=== PATIENT | male | born 1985 | race African-American/Black ===

== ENCOUNTER 2019-05-24 17:00 | Inpatient (IN) | payer SELFPAY ==
[~2019-05-24] VITALS: Ht 175.3 cm; Wt 66.9 kg
[2019-05-24] MEDS ORDERED: SODIUM CHLORIDE 0.9% 1,000 ML IVB ONE (21:24)
[2019-05-24] MEDS ORDERED: PROMETHAZINE HCL 25 MG/ML 1ML IV PRN (21:30)
[2019-05-24] MEDS ORDERED: PANTOPRAZOLE 40 MG/10 ML VIAL INJ IV ONE (21:30)
[2019-05-24 22:16] LABS: Basophils # (auto) 0 uL; Eosinophils # (auto) 0 uL; Lymphocytes # (auto) 0.7 uL; Monocytes # (auto) 0.8 uL; Platelet Count (auto) 275 10^3/uL (140-450); Red Cell Distribution Width 17.2 % (11.8-14.3); White Blood Cell 13.6 10^3/uL (4.4-10.8)
[2019-05-24 22:18] LABS: Basophils % (auto) 0.2 % (0.0-2.0); Hematocrit 41.6 % (41.0-53.0); Hemoglobin 13.6 g/dL (13.5-17.5); Lymphocytes % (auto) 4.8 % (10.0-50.0); Mean Corpuscular Hemoglobin 36.6 pg (28.0-32.0); Mean Corpuscular Hgb Conc. 32.7 g/dL (32.0-36.0); Mean Corpuscular Volume 111.9 fL (80.0-100.0); Monocytes % (auto) 6.2 % (0.0-12.0); Neutrophils # (auto) 12.1 uL; Neutrophils % (auto) 88.8 % (37.0-80.0); Red Blood Cells 3.71 10^6/uL (4.5-5.90)
[2019-05-24 22:33] LABS: Albumin 4.3 g/dL (3.4-5.0); Anion Gap 28 (5-15); Blood Urea Nitrogen 19 mg/dL (7-18); Calcium 8.4 mg/dL (8.5-10.1); Carbon Dioxide 10 mmol/L (21-32); Chloride 95 mmol/L (98-107); Glucose 108 mg/dL (74-106); Lipase 53 U/L (73-393); Magnesium 2.1 mg/dL (1.6-2.6); Potassium 4.7 mmol/L (3.5-5.1); Sodium 133 mmol/L (136-145)
[2019-05-24 22:39] LABS: Alanine Aminotransferase 98 U/L (16-61); Alkaline Phosphatase 160 U/L (45-117); Amylase 31 U/L (25-115); Aspartate Aminotransferase 205 U/L (15-37); BUN/Creatinine Ratio 16.1; Blood Alcohol < 3.0 mg/dL (0-5); GFR African American 90 mL/min; GFR Non-African American 75 mL/min; Total Protein 8.8 g/dL (6.4-8.2)
[2019-05-24 23:00] LABS: Urine Bacteria NONE SEEN /hpf (None Seen); Urine Blood TRACE /uL (Negative); Urine Specific Gravity 1.017 (1.001-1.035); Urine WBC <1 /hpf (0 - 3)
[2019-05-24 23:13] LABS: Alcohol, Urine < 3.0 mg/dL (0-5); Amphetamine Screen, Urine NEGATIVE (NEGATIVE); Barbiturate Scree,Urine NEGATIVE (NEGATIVE); Benzodiazephine Screen, Urine NEGATIVE (NEGATIVE); Cannabinoid Screen, Urine POSITIVE (NEGATIVE); Cocaine Screen, Urine POSITIVE (NEGATIVE); Phencyclidine Screen, Urine NEGATIVE (NEGATIVE)
[2019-05-24] MEDS ORDERED: cefTRIAXone 1GM/50ML D5W 50 ML IV ONE (23:15)
[2019-05-24] MEDS ORDERED: metroNIDAZOLE 500MG/100ML 100 ML IV ONE (23:15)
[2019-05-24 23:21] LABS: Opiate Scree,Urine NEGATIVE (NEGATIVE)
[2019-05-25] MEDS ORDERED: ACETAMINOPHEN 325 MG TAB PO PRN (01:45)
[2019-05-25] MEDS ORDERED: ONDANSETRON HCL 4 MG/2 ML VIAL IV PRN (01:45)
[2019-05-25] MEDS ORDERED: MORPHINE SULFATE 4 MG/ML SYR/VIAL IV PRN (01:45)
[2019-05-25] MEDS ORDERED: TEMAZEPAM 15 MG CAP PO PRN (01:45)
[2019-05-25] MEDS ORDERED: DOCUSATE SOD 100 MG CAP PO PRN (01:45)
[2019-05-25] MEDS ORDERED: HYDROcodone-ACET 5/325MG TAB PO PRN (01:45)
[2019-05-25] MEDS ORDERED: MORPHINE SULF INJ 2 MG/ML SYRINGE 1ML IV PRN (01:45)
[2019-05-25] MEDS ORDERED: NITROGLYCERIN 0.4 MG SL TAB SL PRN (01:45)
[2019-05-25 06:57] LABS: Basophils # (auto) 0 uL; Eosinophils # (auto) 0 uL; Lymphocytes # (auto) 1.3 uL; Monocytes # (auto) 1.1 uL; Monocytes % (auto) 9.9 % (0.0-12.0); Red Cell Distribution Width 16.7 % (11.8-14.3)
[2019-05-25 06:59] LABS: Basophils % (auto) 0.3 % (0.0-2.0); Hematocrit 36.3 % (41.0-53.0); Hemoglobin 12.2 g/dL (13.5-17.5); Lymphocytes % (auto) 11.8 % (10.0-50.0); Mean Corpuscular Hemoglobin 36.8 pg (28.0-32.0); Mean Corpuscular Hgb Conc. 33.5 g/dL (32.0-36.0); Mean Corpuscular Volume 109.9 fL (80.0-100.0); Neutrophils # (auto) 8.9 uL; Platelet Count (auto) 221 10^3/uL (140-450); Red Blood Cells 3.31 10^6/uL (4.5-5.90); White Blood Cell 11.4 10^3/uL (4.4-10.8)
[2019-05-25 07:13] LABS: BUN/Creatinine Ratio 17.2; Calcium 7.8 mg/dL (8.5-10.1); Potassium 5.3 mmol/L (3.5-5.1)
--- NOTE | 2019-05-25 07:15 | NUR ---
Opening Shift Note Report and assumed care of patient, asleep, No S/S of distress/SOB or pain. Bed is low position , locked, with 2x side rails up. Call light is within reach. will continue to monitor for changes Q1hr and PRN.
[2019-05-25] MEDS: metroNIDAZOLE 500MG/100ML 100 ML IV SCH ×3 (08:45→20:10)
[2019-05-25 09:00] VITALS: BP 133/74
[2019-05-25] MEDS ORDERED: LEVOFLOXACIN 500MG 100 ML IV ONE (11:30)
--- NOTE | 2019-05-25 11:40 | NUR ---
MD VISIT DR.H HUFF HERE TO SEE AND EXAMINED PATIENT,RECEIVED ORDERS.
[2019-05-25] MEDS ORDERED: SODIUM CHLORIDE 0.9% 1,000 ML IV SCH (12:00)
[2019-05-25 13:00] VITALS: BP 127/74
[2019-05-25] MEDS ORDERED: GOLYTELY 4L KIT PO ONE (14:30)
[2019-05-25 17:00] VITALS: BP 131/76
--- NOTE | 2019-05-25 17:53 | NUR ---
PATIENT INSTRUCTED, PLAN OF CARE AND EXPECTED PROCEDURE, EXPLAIN INDICATION,IMPORTANCE OF TAKING GOLYTELY AND WHAT TO EXPECT WHEN DRINKING IT LIKE LOOSE OR WATERY STOOL,PATIENT VERBALIZED UNDERSTANDING.
--- NOTE | 2019-05-25 19:23 | NUR ---
STATUS UNCHANGED NO DISTRESS NO DISCOMFORT,REPORT GIVEN TO INCOMING NOC SHIFT RN
[2019-05-25] MEDS: PANTOPRAZOLE 40 MG TAB PO SCH (20:30)
[2019-05-25 22:00] VITALS: BP 129/81
[2019-05-26] MEDS: metroNIDAZOLE 500MG/100ML 100 ML IV SCH ×2 (02:54→07:39)
[2019-05-26 05:08] VITALS: BP 128/81
[2019-05-26 05:14] LABS: Basophils # (auto) 0 uL; Eosinophils # (auto) 0 uL; Hemoglobin 11.8 g/dL (13.5-17.5); Lymphocytes # (auto) 1.1 uL; Nucleated Red Blood Cells % 0.4 %; White Blood Cell 4.5 10^3/uL (4.4-10.8)
[2019-05-26 05:21] LABS: Basophils % (auto) 0.5 % (0.0-2.0); Hematocrit 34.4 % (41.0-53.0); Lymphocytes % (auto) 24.1 % (10.0-50.0); Mean Corpuscular Hemoglobin 36.8 pg (28.0-32.0); Mean Corpuscular Hgb Conc. 34.3 g/dL (32.0-36.0); Mean Corpuscular Volume 107.3 fL (80.0-100.0); Monocytes # (auto) 0.5 uL; Neutrophils # (auto) 2.9 uL; Neutrophils % (auto) 64.4 % (37.0-80.0); Platelet Count (auto) 202 10^3/uL (140-450); Red Cell Distribution Width 16.5 % (11.8-14.3)
[2019-05-26 05:27] LABS: INR 1.01 (0.9-1.15); Partial Thromboplastin Time 25.3 sec (23.64-32.05)
[2019-05-26 05:28] LABS: Calcium 8.2 mg/dL (8.5-10.1); Potassium 3.5 mmol/L (3.5-5.1)
[2019-05-26 05:30] LABS: BUN/Creatinine Ratio 10.2
[2019-05-26] MEDS ORDERED: GOLYTELY 4L KIT PO ONE (06:00)
--- NOTE | 2019-05-26 07:30 | NUR ---
Opening Note Assumed pt care from [facility] nurse. Pt is a/ox4 with no s/s of distress or SOB. Pt is currently sitting upright in bed with no complaints at this time. Pt is currently NPO since 0000. Pt has almost completed all of bowel prep. Discussed POC with pt and pening EGD and colonoscopy; pt verbalized understanding. Safety measures maintained with call light within reach, bed in lowest position and side rails up. Will continue to monitor for changes q1hr and prn.
[2019-05-26] MEDS ORDERED: SODIUM CHLORIDE LOCK 10 ML ONE (08:28)
[2019-05-26] MEDS ORDERED: LIDOCAINE VISCOUS 2% 15ML UD ONE (08:28)
[2019-05-26] MEDS ORDERED: diphenhdrAMINE HCL 50 MG/1 ML VL ONE (08:28)
[2019-05-26 08:47] LABS: Hepatitis B Surface Antibody Negative
[2019-05-26 08:51] VITALS: BP 131/73
--- NOTE | 2019-05-26 09:01 | NUR ---
pT Addendum: 05/26/19 at 0902 by MARISSA BRAR RN RN Pt Taken Down to Pre-OP Pt is a/ox4 with no s/s of distress or SOB upon transfer. All questions were answered.
[2019-05-26] MEDS: fentaNYL CITRATE 100 MCG/2 ML VL ONE ×2 (09:10→09:13)
[2019-05-26] MEDS: MIDAZOLAM HCL 5 MG/ML-1ML VIAL ONE ×3 (09:10→09:17)
[2019-05-26 09:18] LABS: Hepatitis A Total Antibody Positive
[2019-05-26] MEDS ORDERED: fentaNYL CITRATE 100 MCG/2 ML VL ONE (09:18)
[2019-05-26] MEDS ORDERED: MIDAZOLAM HCL 5 MG/ML-1ML VIAL ONE (09:18)
[2019-05-26 09:50] LABS: Hepatitis B Core Total AB Negative; Hepatitis B Surface Antigen Negative (Negative); Hepatitis C Antibody Negative (Negative)
[2019-05-26] MEDS: PANTOPRAZOLE 40 MG TAB PO SCH (10:00)
[2019-05-26] MEDS ORDERED: LEVOFLOXACIN 500MG 100 ML IV SCH (10:00)
--- NOTE | 2019-05-26 10:06 | NUR ---
Pt Back on Unit Pt back on unit from OR. Pt is a/ox4 with no s/s of distress or SOB. Pt placed on 2 L NC. Safety measures maintained with call light within reach, bed in lowest position and side rails up. Will continue to monitor for changes q1hr and prn.
--- NOTE | 2019-05-26 10:18 | NUR ---
Dr Walker at Bedside MD to see pt. MD plans to send pt home today. Follow up with GI and primary as out pt. Will implement and follow through.
[2019-05-26 11:29] VITALS: BP 131/73
--- NOTE | 2019-05-26 12:04 | NUR ---
IV D/C IV to pt's L AC d/c'ed. Catheter was removed fully intact. Pressure was applied to site for 3 minutes with gauze and then wrapped in coban. Pt instructed to keep dressing on for 30 minutes; pt verbalized understanding. Site is asymptomatic upon d/c.
[2019-05-26 13:00] VITALS: BP 136/82
--- NOTE | 2019-05-26 13:10 | NUR ---
Pt D/C'ed Off Unit Pt ambulated off unit. Pt took all belongings, all education material and all prescriptions. Pt is aware of follow up appointments. Pt is a/ox4 with no s/s of distress upon d/c. IV was removed prior to d/c. All questions were answered.
== END 2019-05-26 13:10 | disposition home or self-care (01) | DRG 392 ==
LOC: EDBD 17:00 → ER 17:06 → OVERFLOW 17:07 → WEST WING 05-25 02:22
PROVIDERS: ADMIT Hospitalist; ATTEND Family Medicine
PROC: 0DB78ZX Excision of Stomach, Pylorus, Via Natural or Artificial Opening Endoscopic, Diagnostic (ICD-10-PCS; principal; 2019-05-26 09:08)
PROC: 0DBN8ZX Excision of Sigmoid Colon, Via Natural or Artificial Opening Endoscopic, Diagnostic (ICD-10-PCS; 2019-05-26 09:08)
DX: K29.20 Alcoholic gastritis without bleeding (principal); F10.288 Alcohol dependence with other alcohol-induced disorder; K52.9 Noninfective gastroenteritis and colitis, unspecified; F10.20 Alcohol dependence, uncomplicated; K29.00 Acute gastritis without bleeding; K63.5 Polyp of colon; R79.89 Other specified abnormal findings of blood chemistry; F17.210 Nicotine dependence, cigarettes, uncomplicated; K44.9 Diaphragmatic hernia without obstruction or gangrene; K20.9 Esophagitis, unspecified; K29.80 Duodenitis without bleeding; Z82.49 Family history of ischemic heart disease and other diseases of the circulatory system; Z71.6 Tobacco abuse counseling
CPT/HCPCS: 36415; 43239; 45384; 71045; 74176; 76705; 80048; 80053; 80307; 80320; 81001; 82150; 83690; 83735; 85025; 85610; 85730; 86704; 86706; 86708; 86803; 86850; 86900; 86901; 87340; 96361; 96365; 96367; 96375; C9113; G0378; J0696; J1956; J2250; J3490

== ENCOUNTER 2019-08-12 08:31 | Emergency (ER) | payer SELFPAY ==
[2019-08-12 08:33] VITALS: BP 120/89
[2019-08-12] MEDS ORDERED: KETOROLAC TROMETH 60MG/2ML VIAL IM ONE (08:45)
== END 2019-08-12 09:36 | disposition home or self-care (01) ==
LOC: EDBD 08:31 → ER 08:31
DX: S76.912A Strain of unspecified muscles, fascia and tendons at thigh level, left thigh, initial encounter (principal); S50.12XA Contusion of left forearm, initial encounter; F17.210 Nicotine dependence, cigarettes, uncomplicated; F12.10 Cannabis abuse, uncomplicated; W01.0XXA Fall on same level from slipping, tripping and stumbling without subsequent striking against object, initial encounter; Y93.01 Activity, walking, marching and hiking; Y92.89 Other specified places as the place of occurrence of the external cause; Y99.8 Other external cause status
CPT/HCPCS: 73090; 73552; 96372; 99284; J1885

== ENCOUNTER 2020-02-01 10:26 | Emergency (ER) | payer MEDICAID ==
[~2020-02-01] VITALS: Ht 180.3 cm; Wt 72.6 kg
[2020-02-01 10:31] VITALS: BP 119/81
== END 2020-02-01 12:20 | disposition home or self-care (01) ==
LOC: ER 10:26
DX: M25.461 Effusion, right knee (principal); F17.210 Nicotine dependence, cigarettes, uncomplicated
CPT/HCPCS: 73562

== ENCOUNTER 2021-09-16 10:22 | Inpatient (IN) | payer MEDICAID ==
[~2021-09-16] VITALS: Ht 182.9 cm; Wt 64.0 kg
[2021-09-16 11:12] LABS: Basophils # (auto) 0 10 ^3/uL (0-0.2); Eosinophils # (auto) 0 10 ^3/uL (0-0.8); Lymphocytes # (auto) 0.5 10 ^3/uL (0.4-5.4); Mean Corpuscular Hgb Conc. 32.4 g/dL (32.0-36.0); Mean Corpuscular Volume 103.2 fL (80.0-100.0); Monocytes # (auto) 0.7 10 ^3/uL (0-1.3); Red Cell Distribution Width 17.3 % (11.8-14.3); White Blood Cell 11.3 10^3/uL (4.4-10.8)
[2021-09-16 11:14] LABS: Basophils % (auto) 0.1 % (0.0-2.0); Lymphocytes % (auto) 4.6 % (10.0-50.0); Mean Corpuscular Hemoglobin 33.5 pg (28.0-32.0); Monocytes % (auto) 6.3 % (0.0-12.0); Red Blood Cells 3.88 10^6/uL (4.5-5.90)
[2021-09-16 11:49] LABS: Albumin 4.5 g/dL (3.4-5.0); Anion Gap 27 (5-15); Blood Alcohol < 3.0 mg/dL (0-5); Blood Urea Nitrogen 17 mg/dL (7-18); Calcium 8.7 mg/dL (8.5-10.1); Carbon Dioxide 12 mmol/L (21-32); Chloride 94 mmol/L (98-107); Glucose 128 mg/dL (74-106); Sodium 133 mmol/L (136-145)
[2021-09-16 11:52] LABS: Alanine Aminotransferase 145 U/L (16-61); Alkaline Phosphatase 199 U/L (45-117); Aspartate Aminotransferase 854 U/L (15-37); BUN/Creatinine Ratio 12.9; Bilirubin, Total 1.6 mg/dL (0.2-1.0); GFR African American 78 mL/min; GFR Non-African American 65 mL/min; Total Protein 9.2 g/dL (6.4-8.2)
[2021-09-16] MEDS ORDERED: SODIUM CHLORIDE 0.9% 1,000 ML IV ONE (14:15)
[2021-09-16] MEDS ORDERED: PANTOPRAZOLE 40 MG/10 ML VIAL INJ IV SCH (16:00)
[2021-09-16] MEDS ORDERED: NITROGLYCERIN 0.4 MG SL TAB SL PRN (16:30)
[2021-09-16] MEDS ORDERED: ONDANSETRON HCL 4 MG/2 ML VIAL IV PRN (16:30)
[2021-09-16] MEDS: PANTOPRAZOLE 40 MG/10 ML VIAL INJ IV SCH ×2 (17:26→23:15)
[2021-09-16] MEDS: SODIUM CHLORIDE 0.9% 1,000 ML IV SCH (17:27)
[2021-09-16] MEDS ORDERED: SUCRALFATE 1 GM/10 ML ORAL SUSP PO SCH (18:00)
[2021-09-16] MEDS: SUCRALFATE 1 GM/10 ML ORAL SUSP PO SCH ×3 (18:26→23:14)
[2021-09-16] MEDS: MORPHINE SULFATE INJ 2 MG/ml SYRG IV PRN ×2 (18:29→23:14)
[2021-09-16 21:22] LABS: Urine Bacteria NONE SEEN /hpf (None Seen); Urine Blood TRACE /uL (Negative); Urine Specific Gravity 1.021 (1.001-1.035); Urine WBC 4 /hpf (0 - 3)
[2021-09-16 21:29] LABS: Alcohol, Urine < 3.0 mg/dL (0-10); Amphetamine Screen, Urine NEGATIVE (NEGATIVE); Barbiturate Scree,Urine NEGATIVE (NEGATIVE); Benzodiazephine Screen, Urine NEGATIVE (NEGATIVE); Cannabinoid Screen, Urine POSITIVE (NEGATIVE); Cocaine Screen, Urine POSITIVE (NEGATIVE); Opiate Scree,Urine NEGATIVE (NEGATIVE); Phencyclidine Screen, Urine POSITIVE (NEGATIVE)
[2021-09-16 23:01] VITALS: BP 138/83
[2021-09-17] VITALS: BP 138/88
[2021-09-17 05:40] VITALS: BP 127/87
[2021-09-17] MEDS: SODIUM CHLORIDE 0.9% 1,000 ML IV SCH ×3 (05:50→21:11)
[2021-09-17 05:51] LABS: Basophils # (auto) 0 10 ^3/uL (0-0.2); Basophils % (auto) 0.2 % (0.0-2.0); Eosinophils # (auto) 0 10 ^3/uL (0-0.8); Hemoglobin 11.3 g/dL (13.5-17.5); Lymphocytes # (auto) 0.8 10 ^3/uL (0.4-5.4); Lymphocytes % (auto) 7.6 % (10.0-50.0); Monocytes # (auto) 1.1 10 ^3/uL (0-1.3); Neutrophils # (auto) 8.2 10 ^3/uL (1.6-8.6); White Blood Cell 10.1 10^3/uL (4.4-10.8)
[2021-09-17 05:54] LABS: Eosinophils % (auto) 0.2 % (0.0-7.0); Hematocrit 32.4 % (41.0-53.0); Mean Corpuscular Hgb Conc. 34.8 g/dL (32.0-36.0); Mean Corpuscular Volume 106.2 fL (80.0-100.0); Monocytes % (auto) 10.7 % (0.0-12.0); Neutrophils % (auto) 81.3 % (37.0-80.0); Red Blood Cells 3.05 10^6/uL (4.5-5.90); Red Cell Distribution Width 16.8 % (11.8-14.3)
[2021-09-17 06:01] LABS: Albumin 3.6 g/dL (3.4-5.0)
[2021-09-17 06:02] LABS: Albumin 3.6 g/dL (3.4-5.0); BUN/Creatinine Ratio 13.5; Calcium 8.5 mg/dL (8.5-10.1); Potassium 4.3 mmol/L (3.5-5.1)
[2021-09-17 06:05] LABS: Bilirubin, Total 1.2 mg/dL (0.2-1.0); Total Protein 7.4 g/dL (6.4-8.2)
[2021-09-17 06:07] LABS: Bilirubin, Direct 0.5 mg/dL (0-0.2); Bilirubin, Total 1.2 mg/dL (0.2-1.0); Total Protein 7.6 g/dL (6.4-8.2)
[2021-09-17] MEDS: SUCRALFATE 1 GM/10 ML ORAL SUSP PO SCH ×4 (06:08→22:15)
[2021-09-17 06:09] LABS: INR 0.99 (0.9-1.15)
[2021-09-17 09:00] VITALS: BP 128/82
[2021-09-17] MEDS: PANTOPRAZOLE 40 MG/10 ML VIAL INJ IV SCH ×2 (09:00→22:15)
[2021-09-17 13:00] VITALS: BP 113/81
[2021-09-17 16:53] VITALS: BP 124/83
[2021-09-17] MEDS ORDERED: HYDROcodone-ACET 5/325MG TAB PO PRN (19:45)
[2021-09-17] MEDS ORDERED: ACETAMINOPHEN 325 MG TAB PO PRN (19:45)
[2021-09-17] MEDS ORDERED: MORPHINE SULFATE INJ 2 MG/ml SYRG IV PRN (19:45)
[2021-09-17 22:00] VITALS: BP 127/82
[2021-09-18 05:00] VITALS: BP 110/65
[2021-09-18 05:33] LABS: Basophils # (auto) 0.1 10 ^3/uL (0-0.2); Eosinophils # (auto) 0 10 ^3/uL (0-0.8); Hematocrit 31.3 % (41.0-53.0); Monocytes # (auto) 0.7 10 ^3/uL (0-1.3); Neutrophils # (auto) 3.3 10 ^3/uL (1.6-8.6); Red Cell Distribution Width 16.6 % (11.8-14.3)
[2021-09-18 05:36] LABS: Basophils % (auto) 2.3 % (0.0-2.0); Eosinophils % (auto) 0.6 % (0.0-7.0); Hemoglobin 10.7 g/dL (13.5-17.5); Lymphocytes # (auto) 1.3 10 ^3/uL (0.4-5.4); Lymphocytes % (auto) 24.3 % (10.0-50.0); Mean Corpuscular Hemoglobin 34.7 pg (28.0-32.0); Mean Corpuscular Hgb Conc. 34.2 g/dL (32.0-36.0); Mean Corpuscular Volume 101.5 fL (80.0-100.0); Monocytes % (auto) 12.6 % (0.0-12.0); Neutrophils % (auto) 60.2 % (37.0-80.0); Nucleated Red Blood Cells % 0.2 %; Red Blood Cells 3.08 10^6/uL (4.5-5.90); White Blood Cell 5.4 10^3/uL (4.4-10.8)
[2021-09-18 05:51] LABS: Albumin 3.1 g/dL (3.4-5.0); Calcium 8.2 mg/dL (8.5-10.1); Potassium 3.2 mmol/L (3.5-5.1)
[2021-09-18 05:56] LABS: BUN/Creatinine Ratio 8.1; Bilirubin, Direct 0.7 mg/dL (0-0.2); Bilirubin, Total 1.2 mg/dL (0.2-1.0); Total Protein 6.6 g/dL (6.4-8.2)
[2021-09-18] MEDS: SUCRALFATE 1 GM/10 ML ORAL SUSP PO SCH ×4 (07:00→21:42)
[2021-09-18] MEDS: PANTOPRAZOLE 40 MG/10 ML VIAL INJ IV SCH (08:27)
[2021-09-18 09:00] VITALS: BP 113/75
[2021-09-18] MEDS ORDERED: POTASSIUM CHL 20MEQ/100ML 100 ML IV ONE (10:00)
[2021-09-18] MEDS ORDERED: fentaNYL CITRATE 100 MCG/2 ML VL ONE (10:46)
[2021-09-18] MEDS ORDERED: MIDAZOLAM HCL 2MG/2ML 2ml VIAL (1mg/ml) ONE (10:47)
[2021-09-18] MEDS ORDERED: LIDOCAINE 2% (LOCAL ANESTH.) PF 5ml SDV ONE (10:50)
[2021-09-18] MEDS ORDERED: PROPOFOL 10 MG/ML 20 ML IV ONE (10:50)
[2021-09-18] MEDS ORDERED: ONDANSETRON HCL 4 MG/2 ML VIAL ONE (10:50)
[2021-09-18] MEDS ORDERED: ONDANSETRON HCL 4 MG/2 ML VIAL IV PRN (12:00)
[2021-09-18 14:00] VITALS: BP 133/86
[2021-09-18 17:00] VITALS: BP 124/82
[2021-09-18] MEDS ORDERED: POTASSIUM EFFERVESENT TAB 25 MEQ PO ONE (19:45)
[2021-09-18 21:31] VITALS: BP 133/83
[2021-09-18] MEDS: PANTOPRAZOLE 40 MG TAB PO SCH (21:42)
[2021-09-19 05:00] VITALS: BP 118/85
[2021-09-19 05:15] LABS: Basophils # (auto) 0 10 ^3/uL (0-0.2); Basophils % (auto) 0.7 % (0.0-2.0); Eosinophils # (auto) 0.1 10 ^3/uL (0-0.8); Lymphocytes # (auto) 1.4 10 ^3/uL (0.4-5.4); Neutrophils # (auto) 3.4 10 ^3/uL (1.6-8.6); Nucleated Red Blood Cells % 0.1 %; White Blood Cell 5.8 10^3/uL (4.4-10.8)
[2021-09-19 05:17] LABS: Eosinophils % (auto) 0.9 % (0.0-7.0); Hematocrit 29.8 % (41.0-53.0); Hemoglobin 10.3 g/dL (13.5-17.5); Lymphocytes % (auto) 23.8 % (10.0-50.0); Mean Corpuscular Hemoglobin 34.7 pg (28.0-32.0); Mean Corpuscular Hgb Conc. 34.7 g/dL (32.0-36.0); Mean Corpuscular Volume 99.9 fL (80.0-100.0); Monocytes # (auto) 0.9 10 ^3/uL (0-1.3); Monocytes % (auto) 14.9 % (0.0-12.0); Neutrophils % (auto) 59.7 % (37.0-80.0); Red Blood Cells 2.98 10^6/uL (4.5-5.90); Red Cell Distribution Width 16.2 % (11.8-14.3)
[2021-09-19 05:35] LABS: Potassium 3.1 mmol/L (3.5-5.1)
[2021-09-19 05:42] LABS: Albumin 2.9 g/dL (3.4-5.0); BUN/Creatinine Ratio 5.6; Total Protein 6.3 g/dL (6.4-8.2)
[2021-09-19] MEDS: SUCRALFATE 1 GM/10 ML ORAL SUSP PO SCH ×3 (06:33→16:40)
[2021-09-19] MEDS ORDERED: POTASSIUM CHLORIDE 40 MEQ, LIDOCAINE 1% (LOCAL ANESTH.) 4 ML in SODIUM CHL 0.9% 250 ML IV ONE (08:15)
[2021-09-19 09:00] VITALS: BP 108/81
[2021-09-19] MEDS ORDERED: POTASSIUM CHL 20MEQ/100ML 100 ML IV ONE (09:00)
[2021-09-19] MEDS: PANTOPRAZOLE 40 MG TAB PO SCH (09:54)
[2021-09-19] MEDS ORDERED: FOLIC ACID 1 MG TAB PO SCH (10:00)
[2021-09-19] MEDS ORDERED: THIAMINE HCL 100 MG TAB PO SCH (10:00)
[2021-09-19 11:52] LABS: Hepatitis A Ab IgM Negative; Hepatitis B Core IgM Negative; Hepatitis C Antibody Negative (Negative)
[2021-09-19 13:00] VITALS: BP 119/80
[2021-09-19] MEDS ORDERED: PANT40T PO (15:53)
[2021-09-19] MEDS ORDERED: SUCR1SUS10 PO (15:53)
[2021-09-19] MEDS ORDERED: THIA100T10 PO (15:53)
[2021-09-19] MEDS ORDERED: FOLI1TAB6 PO (15:53)
[2021-09-19 16:49] VITALS: BP 119/80
[2021-09-19 16:50] VITALS: BP 139/91
== END 2021-09-19 18:15 | disposition home or self-care (01) | DRG 241 ==
LOC: ER 10:22 → TELE 16:18 → TELE-EAST 22:43
PROVIDERS: ADMIT Internal Medicine; ATTEND Internal Medicine
PROC: 0W3P8ZZ Control Bleeding in Gastrointestinal Tract, Via Natural or Artificial Opening Endoscopic (ICD-10-PCS; principal; 2021-09-18 10:50)
DX: K29.71 Gastritis, unspecified, with bleeding (principal); N17.9 Acute kidney failure, unspecified; K20.91 Esophagitis, unspecified with bleeding; E86.0 Dehydration; K29.91 Gastroduodenitis, unspecified, with bleeding; F17.210 Nicotine dependence, cigarettes, uncomplicated; R74.01 Elevation of levels of liver transaminase levels; R74.8 Abnormal levels of other serum enzymes; R79.89 Other specified abnormal findings of blood chemistry; Z20.822 Contact with and (suspected) exposure to COVID-19; R07.89 Other chest pain; F19.10 Other psychoactive substance abuse, uncomplicated; Z71.51 Drug abuse counseling and surveillance of drug abuser; Z82.49 Family history of ischemic heart disease and other diseases of the circulatory system
CPT/HCPCS: 36415; 71046; 74176; 76700; 80053; 80074; 80076; 80307; 80320; 81001; 82140; 82248; 83735; 84484; 85025; 85610; 93005; 93306; 96361; 96374; C9113; G0378; J2001; J2250; J2405; J2704; J3480